=== PATIENT | male | born 2000 | race Hispanic/Latino ===

== ENCOUNTER 2020-04-19 13:19 | Emergency (ER) | payer OTHER ==
--- NOTE | 2020-04-19 14:48 | RAD REPORT ---
EXAM DESCRIPTION: RAD - Knee Right 3 View - 04/19/2020 2:42 pm CLINICAL HISTORY: Right knee pain status post injury FINDINGS: No fracture or dislocation is seen.
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
[2020-04-19] MEDS ORDERED: CEPHALEXIN 250 MG CAP ONE (17:45)
[2020-04-19] MEDS ORDERED: TETANUS & DIPHTHERIA TOX,ADULT 0.5 ML VIAL ONE (17:45)
[2020-04-19 18:11] VITALS: BP 121/74; TEMP 98.1; O2SAT 100
== END 2020-04-19 17:42 | disposition home or self-care (01) ==
LOC: ER 13:19
DX: M23.91 Unspecified internal derangement of right knee (principal); S80.01XA Contusion of right knee, initial encounter; Z23 Encounter for immunization
CPT/HCPCS: 90471; 90714; 99284